=== PATIENT | female | born 1950 | race African-American/Black ===

== ENCOUNTER 2021-12-28 11:18 | Observation (INO) ==
[2021-12-28] MEDS ORDERED: SODIUM CHLORIDE 0.9% 500 ML IV STA ×2 (12:16→14:50)
[2021-12-28 12:26] LABS: Basophils % 0.3 % (0.0-0.8); Eosinophils % 0.8 % (0.00-10.9); Hematocrit 37.4 VOL% (35.7-47.0); Hemoglobin 11.6 GM/DL (12.0-16.0); Immature Granulocytes % 0.3 %; Immature Granulocytes Absolute 0.01 #; Lymphocytes # 1.9 10*3/uL (1.4-4.0); Lymphocytes % 52.4 % (21.3-54.2); Mean Corpuscular Volume 86.6 FL (87-102); Mean Platelet Volume 9.7 FL (9.6-12.0); Monocytes # 0.2 10*3/uL (0.11-0.8); Monocytes % 6.4 % (1.7-12.7); Neutrophils % 39.8 % (38.7-73.9); Platelet Count 251 T/CUMM (130-400); Red Blood Count 4.32 MC/CUMM (3.8-5.5); White Blood Count 3.6 T/CUMM (4-12)
[2021-12-28 12:33] LABS: INR 0.9; PT Patient Result 10.5 SECS (10.1-12.1)
[2021-12-28 12:38] LABS: Albumin 3.8 G/DL (3.4-5.0); Bilirubin,Total 0.4 MG/DL (0.20-1.00); Calcium 9.7 MG/DL (8.5-10.1); Osmolality,Calculated 293.4 MOS/KG (273-304); Potassium 3.8 MMOL/L (3.5-5.1); Total Protein 6.5 G/DL (6.4-8.2)
[2021-12-28] MEDS ORDERED: ONDANSETRON 4 MG/2 ML VIAL IV PRN (15:35)
[2021-12-28] MEDS ORDERED: SODIUM CHLORIDE 0.45% 1,000 ML IV SCH (16:00)
[2021-12-28] MEDS: PANTOPRAZOLE 40 MG VIAL IV SCH (16:16)
[2021-12-28] MEDS ORDERED: INFLUENZA VIRUS VACCINE 0.5 ML SYRINGE IM ONE (17:13)
[2021-12-28] MEDS ORDERED: LORazepam 1 MG TABLET PO PRN (17:38)
[2021-12-28] MEDS ORDERED: LACTULOSE 20 GM/30 ML UDCUP PO SCH (21:00)
[2021-12-28] MEDS: QUEtiapine 25 MG TABLET PO SCH (21:23)
[2021-12-28] MEDS: DOCUSATE SODIUM 100 MG CAPSULE PO SCH (21:23)
[2021-12-28] MEDS: POLYETHYLENE GLYCOL POWDER 17 GM PACK PO SCH (21:23)
[2021-12-28] MEDS: cefTRIAXone 1,000 MG in SODIUM CHLORIDE 0.9% 100 ML IV SCH (21:23)
[2021-12-29 05:29] LABS: Basophils % 0.3 % (0.0-0.8); Eosinophils # 0.1 10*3/uL (0.0-0.87); Eosinophils % 1.8 % (0.00-10.9); Hematocrit 34.7 VOL% (35.7-47.0); Hemoglobin 11.1 GM/DL (12.0-16.0); Lymphocytes # 2.2 10*3/uL (1.4-4.0); Lymphocytes % 65.1 % (21.3-54.2); Mean Corpuscular Volume 85.5 FL (87-102); Mean Platelet Volume 9.7 FL (9.6-12.0); Monocytes # 0.3 10*3/uL (0.11-0.8); Monocytes % 7.9 % (1.7-12.7); Neutrophils % 24.9 % (38.7-73.9); Platelet Count 227 T/CUMM (130-400); Red Blood Count 4.06 MC/CUMM (3.8-5.5); Red Cell Distribution Width 13.9 % (9.3-17.3); White Blood Count 3.4 T/CUMM (4-12)
[2021-12-29 05:53] LABS: Folate 13.66 NG/ML (5.38-24.0); Vitamin B12 416 PG/ML (211-911)
[2021-12-29 05:58] LABS: Eosinophils 2 % (0-10); Hypochromia Slight; Lymphocytes 59 % (20-55); Microcytosis Slight; Platelet Estimate Adequate; Total Cells Counted 100
[2021-12-29 06:02] LABS: Calcium 8.7 MG/DL (8.5-10.1); Osmolality,Calculated 290.4 MOS/KG (273-304); Potassium 3.2 MMOL/L (3.5-5.1); Thyroid Stimulating Hormone 0.564 uIU/ml (0.358-3.74)
[2021-12-29 06:38] LABS: Sedimentation Rate-Westergren 5 MM/HR (0-30)
[2021-12-29] MEDS ORDERED: LINACLOTIDE 145 MCG CAPSULE PO SCH (07:30)
[2021-12-29 08:42] LABS: Hemoglobin A1 (Alkaline) 97.7 % (96.5-98.5); Hemoglobin A2 (Alkaline) 2.3 % (1.5-3.5)
[2021-12-29] MEDS: DOCUSATE SODIUM 100 MG CAPSULE PO SCH ×2 (09:19→20:45)
[2021-12-29] MEDS: BISACODYL 5 MG TABLET PO SCH ×3 (09:19→22:30)
[2021-12-29] MEDS: POTASSIUM CHLORIDE 20 MEQ TABLET PO SCH ×2 (09:19→10:11)
[2021-12-29] MEDS: POLYETHYLENE GLYCOL POWDER 17 GM PACK PO SCH ×2 (09:19→20:45)
[2021-12-29] MEDS: PHENAZOPYRIDINE 95 MG TABLET PO SCH ×3 (09:19→16:20)
[2021-12-29] MEDS: PANTOPRAZOLE 40 MG VIAL IV SCH (10:11)
[2021-12-29] MEDS: QUEtiapine 25 MG TABLET PO SCH ×2 (10:12→20:45)
[2021-12-29] MEDS ORDERED: POLYETHYLENE GLYCOL POWDER 255 GM BOTTLE PO ONE (12:00)
[2021-12-29] MEDS: lisinopriL 10 MG TABLET PO SCH (13:43)
[2021-12-29] MEDS: cefTRIAXone 1,000 MG in SODIUM CHLORIDE 0.9% 100 ML IV SCH (20:45)
[2021-12-29] MEDS ORDERED: MAGNESIUM HYDROXIDE SUSP 30 ML UDCUP PO ONE (21:00)
[2021-12-30 06:05] LABS: Basophils % 0.3 % (0.0-0.8); Eosinophils # 0.1 10*3/uL (0.0-0.87); Eosinophils % 1.8 % (0.00-10.9); Hematocrit 35.6 VOL% (35.7-47.0); Hemoglobin 11.4 GM/DL (12.0-16.0); Lymphocytes # 2.1 10*3/uL (1.4-4.0); Lymphocytes % 60.8 % (21.3-54.2); Mean Corpuscular Volume 85.6 FL (87-102); Mean Platelet Volume 9.7 FL (9.6-12.0); Monocytes # 0.2 10*3/uL (0.11-0.8); Monocytes % 7.1 % (1.7-12.7); Platelet Count 242 T/CUMM (130-400); Red Blood Count 4.16 MC/CUMM (3.8-5.5); White Blood Count 3.4 T/CUMM (4-12)
[2021-12-30 06:20] LABS: Osmolality,Calculated 289.4 MOS/KG (273-304); Potassium 3.5 MMOL/L (3.5-5.1)
[2021-12-30 06:47] LABS: Lymphocytes 58 % (20-55); Total Cells Counted 100
[2021-12-30 06:48] LABS: Acanthocytes Few; Hypochromia Slight; Microcytosis 1+; Ovalocytes Few; Platelet Estimate Normal
[2021-12-30 06:49] LABS: Atypical Lymphocytes Few
[2021-12-30] MEDS ORDERED: POTASSIUM CHLORIDE 20 MEQ TABLET PO ONE (07:26)
[2021-12-30] MEDS ORDERED: LACTATED RINGERS 1,000 ML IV SCH ×2 (08:30→12:00)
[2021-12-30] MEDS ORDERED: propofoL 200 MG/20 ML VIAL IV ONE (09:05)
[2021-12-30] MEDS ORDERED: LIDOCAINE 2% 5 ML VIAL ONE (09:05)
[2021-12-30] MEDS: lisinopriL 10 MG TABLET PO SCH (11:10)
[2021-12-30] MEDS: POLYETHYLENE GLYCOL POWDER 17 GM PACK PO SCH (11:10)
[2021-12-30] MEDS: DOCUSATE SODIUM 100 MG CAPSULE PO SCH (11:10)
[2021-12-30] MEDS: PHENAZOPYRIDINE 95 MG TABLET PO SCH (11:10)
[2021-12-30] MEDS: PANTOPRAZOLE 40 MG VIAL IV SCH (11:10)
[2021-12-30] MEDS: QUEtiapine 25 MG TABLET PO SCH (11:11)
[2021-12-30 11:54] VITALS: BP 149/94
== END 2021-12-30 14:01 | disposition hospice, home (50) ==
LOC: N.EDINP 11:18 → N.ED 11:18 → N.2W 16:03
PROVIDERS: ADMIT Hospitalist; ATTEND Hospitalist